=== PATIENT | female | born 1985 | race Asian ===

== ENCOUNTER → 2023-12-02 06:33 | Day surgery (SDC) | payer OTHER, SELFPAY | LOC: GI 06:33 | PROVIDERS: ATTENDING PHYSICIAN Specialist; FAMILY PHYSICIAN Family Medicine | DX: K51.50 Left sided colitis without complications (principal) | CPT/HCPCS: 45380; 88305 ==

== ENCOUNTER 2025-05-31 18:45 | Emergency (ER) | payer OTHER, SELFPAY ==
[2025-05-31 18:50] VITALS: BP 128/92
--- NOTE | 2025-05-31 20:15 | ED.MUSCINJ ---
HPI-Injury
General
Chief Complaint: Musculo-Skeletal Complaint
Source: patient
Exam Limitations: none
Time Seen by Provider: 05/31/25 20:06
Nursing documentation reviewed up to this point in time: agreed with
History of Present Illness-Injury
Initial Injury comments:
40-year-old female with no significant past medical history presents with left knee pain after she twisted the knee inward while playing dodgeball at the [facility] with her children about 2 hours ago. She felt her to the ground, attempted to get up but
could not weight-bear on the left leg as the knee would give out. She was helped to her car via wheelchair and her brought her here. Pain is minimal at rest.
Past History
Past History
ED Past Medical History: None
ED Past Surgical History:
Social History
Tobacco: Non-smoker
Personal:
Living: with family
Employment: Employed (works from home.)
Review of Systems
Review of Systems
Allergies reviewed?: Yes
All Other Systems: ROS reviewed and negative except as documented in HPI and ROS
Phy Exam
Physical Exam
Physical Exam:
PHYSICAL EXAMINATION:
General: no apparent distress, not acutely ill
Neuro: alert and oriented.
Psychiatric: well kept. interactive and cooperative
Musculoskeletal: Moves with ease. Left knee with minimal swelling. Mild to moderate tenderness with palpation along the medial collateral ligament. Full range of motion. No patellar tenderness. Distal neurovascular intact.
Skin: Warm, pink.
Injury Course
Orders/Labs/Results
Orders:
Orders
05/31/25 18:53
CR Knee - Left 4 Or More View* Urgent
Comment:
Reason For Exam: pain/fall
05/31/25 20:14
Knee Immobilizer Left-Treatmen ONCE
05/31/25 21:14
Crutches-Treatment ONCE
MDM/Problems Addressed
Differential Diagnosis Includes:
Fracture, sprain, torn meniscus, MCL sprain
MDM/Problems Addressed:
40-year-old female with no significant past medical history presents with left knee pain after she twisted the knee inward while playing dodgeball at the [facility] with her children about 2 hours ago. She felt her to the ground, attempted to get up but
could not weight-bear on the left leg as the knee would give out. She was helped to her car via wheelchair and her brought her here. Pain is minimal at rest. Most of her pain is on the medial aspect of the knee
Minimal swelling, full ROM. Tender medial knee.
Knee x-ray initially read by this examiner: no acute abnormality noted.
Knee immobilizer applied, patient unable to weight-bear without significant pain so crutches ordered.
Referred to orthopedics
*Pulse Oximetry
SaO2: 98
Oxygen Mode of Delivery: Room air
Patient hypoxic: not evaluated
*Critical Care Note
Total Time (30-74mins, 75-104mins- exclusive of procedures): Not Applicable
ED Attending Note
-
Portions of this chart may have been created with voice recognition software.� Occasional wrong word or��sound alike� substitutions may have occurred due to the inherent limitations of voice recognition software.
Discharge Plan
Departure
Patient Disposition: Home (Routine Discharge)
Date of Disposition: 05/31/25
Time of Disposition: 20:47
Patient with high blood pressure during this ER visit?: No
Condition: Good
Discharge Problem:
Soft tissue injury of left knee
Instructions: Knee Immobilizer (DC), Using Cold for Pain, Knee Sprain ED
Referrals:
Rubin Davies MD [Active, Orthopedics] - Next open appointment
Activity Restrictions/Additional Instructions:
As we discussed, wear the knee immobilizer when up and around at all times until your knee feels better and stable (up to 1 week).
Apply cold compress 20 minutes off and on for the next 2 days as much as you can to minimize swelling
See the orthopedic doctor if your knee is not A LOT better in 1 week or not 100% better in 3 weeks
Tylenol ibuprofen as needed for pain
Use the crutches with gradually increasing weightbearing as comfort permits.
Interventions
Interventions:
*Risk Screen - Suicide Last Done: 05/31/25 18:50
*General Assessment Last Done: 05/31/25 18:50
*Neglect/Abuse Screening Last Done: 05/31/25 18:50
*Nursing Disposition Last Done: 05/31/25 21:27
ED-Musculoskeletal Assessment Last Done: 05/31/25 21:26
Discharge Date and Time
Discharge Date/Time: 05/31/25 21:27
Print Language: DIVEHI
== END 2025-05-31 21:27 | disposition home or self-care (01) ==
LOC: EMR 18:45
PROVIDERS: EMERGENCY PHYSICIAN Emergency Medicine; FAMILY PHYSICIAN Family Medicine
DX: S89.92XA Unspecified injury of left lower leg, initial encounter (principal); X50.1XXA Overexertion from prolonged static or awkward postures, initial encounter; Y93.6A Activity, physical games generally associated with school recess, summer camp and children; Y92.39 Other specified sports and athletic area as the place of occurrence of the external cause
CPT/HCPCS: 99283; 29505; 73564

== ENCOUNTER → 2025-06-18 19:27 | Outpatient (REF) | payer OTHER, SELFPAY | LOC: PAVMRI 19:27 | PROVIDERS: ATTENDING PHYSICIAN Specialist; FAMILY PHYSICIAN Family Medicine | DX: M25.562 Pain in left knee (principal) | CPT/HCPCS: 73721 ==

== ENCOUNTER → 2025-06-26 09:27 | Outpatient (REF) | payer OTHER, SELFPAY ==
[2025-06-26 10:55] LABS: Hematocrit 40.1 % (37.0-47.0); Hemoglobin 12.5 g/dL (12.0-16.0); Mean Corp Hgb Conc. 31.2 g/dL (33.0-37.0); Mean Corpuscular Volume 93.0 fL (81.0-99.0); Nucleated Red Blood Cells % 0 %; Platelet Count 327 10^3/uL (130-400); Red Cell Dist. Width 12.7 % (11.5-14.5)
[2025-06-26 11:17] LABS: Blood Urea Nitrogen 9 mg/dl (7-17); Calcium 9.4 mg/dl (8.4-10.2); Carbon Dioxide 31 mmol/L (22-30); Chloride 103 mmol/L (98-107); Glucose 72 mg/dl (70-99); Potassium 4.5 mmol/L (3.5-5.1); Sodium 138 mmol/L (135-145); eGFR > 60.00
== END ==
LOC: REG 09:27
PROVIDERS: ATTENDING PHYSICIAN Specialist; FAMILY PHYSICIAN Family Medicine
DX: Z01.818 Encounter for other preprocedural examination (principal)
CPT/HCPCS: 36415; 80048; 85025